=== PATIENT | female | born 2000 | race Caucasian/White ===

== ENCOUNTER 2021-08-20 15:54 | Emergency (ER) | payer OTHER, MEDICAID ==
--- NOTE | 2021-08-20 16:20 | ERPHSYRPT ---
- History of Present Illness Source: patient Exam Limitations: no limitations Patient Subjective Stated Complaint: head pain Triage Nursing Assessment: Patient ambulated back to ED and transferred self to bed. Patient A+O X 3. Patient's skin pink, warm and dry. Patient complains of head pain on the right top side of head for the past 3 days intermittent sharp pain. Patient currently denies pain or discomfort. Patient denies dizziniess, N/V. Physician History: 21 yo wf w 3 day h/o R parietal, instantaneous sharp pain. Pt is currently pain free/0 but has been up to a 7. She has a h/o migraine STALEY's but symptoms different. She denies N/V/blurry vision/focal weakness/fever/trauma/cough/coryza. Nothing makes the pain better or worse. Timing/Duration: other (3 days) Quality: sharpness Head Pain Location: parietal (R parietal) Severity of Pain-Max: moderate Severity of Pain-Current: none Recent Head Trauma: no recent headache/trauma Modifying Factors: Worsens With: cold therapy, exposure to light, immobilization, medication, movement, rest, noise, position Associated Symptoms: No confusion, No dizziness, No fatigue, No facial pain, No fever/chills, No flushing, No light-headedness, No loss of consciousness, No nausea/vomiting, No nasal congestion, No nasal drainage, No neck pain, No numbness in legs/feet, No rash, No sweating, No scotoma, No seizures, No sinus infection, No sensitive to light, No speech problems, No stiff neck, No trouble walking, No vision changes, No visual disturbance, No weakness Previous symptoms: no prior history Allergies/Adverse Reactions: No Known Drug Allergies Allergy (Verified 08/20/21 15:58) Home Medications: Sumatriptan Succinate [Imitrex] 1 tab PO TID 08/20/21 [History] Hx Tetanus, Diphtheria Vaccination/Date Given: Yes Hx Influenza Vaccination/Date Given: Yes (2019) Hx Pneumococcal Vaccination/Date Given: No Immunizations Up to Date: Yes Travel Risk - International Travel Have you traveled outside of the country in past 3 weeks: No - Coronavirus Screening Are you exhibiting any of the following symptoms?: No Close contact with a COVID-19 positive Pt in past 14-21 Days: No - Vaccine Status Have you recieved a Covid-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: Yes 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: [employer] - Vaccination Dates Date of 2cond Vaccination (if applicable): 08/07/2021 - Review of Systems Constitutional: No Symptoms Eyes: No Symptoms Ears, Nose, & Throat: No Symptoms Respiratory: No Symptoms Cardiac: No Symptoms Abdominal/Gastrointestinal: No Symptoms Genitourinary Symptoms: No Symptoms Musculoskeletal: No Symptoms Skin: No Symptoms Neurological: No Symptoms, Headache Psychological: No Symptoms Endocrine: No Symptoms Hematologic/Lymphatic: No Symptoms Immunological/Allergic: No Symptoms - Past Medical History Pertinent Past Medical History: Yes Neurological History: Migraines ENT History: No Pertinent History Cardiac History: No Pertinent History Respiratory History: No Pertinent History Endocrine Medical History: No Pertinent History Musculoskeletal History: No Pertinent History GI Medical History: No Pertinent History History: No Pertinent History Psycho-Social History: Anxiety Female Reproductive Disorders: No Pertinent History - Past Surgical History Past Surgical History: No Neuro Surgical History: No Pertinent History Cardiac: No Pertinent History Respiratory: No Pertinent History Gastrointestinal: No Pertinent History Genitourinary: No Pertinent History Musculoskeletal: No Pertinent History Female Surgical History: No Pertinent History - Social History Smoking Status: Never smoker Exposure to second hand smoke: No Drug Use: none Patient Lives Alone: No Significant Family History: no pertinent family hx - Female History Hx Last Menstrual Period: Depo shot Hx Now: No - Nursing Vital Signs Nursing Vital Signs: Initial Vital Signs Temperature 98.9 F 08/20/21 16:00 Pulse Rate 92 H 08/20/21 16:00 Respiratory Rate 18 08/20/21 16:00 Blood Pressure 141/77 08/20/21 16:00 O2 Sat by Pulse Oximetry 100 08/20/21 16:00 Pain Scale Pain Intensity 0 Hypertensive - Physical Exam General Appearance: no apparent distress Eye Exam: PERRL/EOMI, eyes nml inspection Ears, Nose, Throat Exam: normal ENT inspection, TMs normal, pharynx normal, moist mucous membranes Neck Exam: normal inspection, non-tender, supple, full range of motion, No meningismus, No mass, No Brudzinski, No Kernig's Respiratory Exam: normal breath sounds, lungs clear, airway intact Cardiovascular Exam: regular rate/rhythm, normal heart sounds, murmur Gastrointestinal/Abdominal Exam: soft, normal bowel sounds, No tenderness Back Exam: normal inspection, normal range of motion, No CVA tenderness, No vertebral tenderness Extremity Exam: normal inspection, normal range of motion Mental Status Exam: alert, oriented x 3, 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: normal hearing, normal speech, PERRL, No abnormal eye position, No abnormal gag reflex, No abnormal pupil position, No facial asymmetry, No facial droop, No facial paresthesias, No facial weakness, No gaze palsy, No hearing deficit (R), No hearing deficit (L), No tongue deviation to R, No tongue deviation to L Coordination/Gait Exam: normal finger to nose, normal gait, normal cerebellar function, negative Romberg's sign, positive Romberg's sign Motor/Sensory Exam: no motor deficit, no sensory deficit, no pronator drift, negative Babinski's sign DTR Exam: bicep (R): 2+, bicep (L): 2+ Skin Exam: normal color, warm, dry, No rash Lymphatic Exam: adenopathy SpO2 Interpretation: normal SpO2: 100 O2 Delivery: Room Air - Course Nursing assessment & vital signs reviewed: Yes - Progress Progress: improved Progress Note: 08/20/21 16:21 Pt wo pain/focal weakness/Normal PE/No fever so will DC at this time as pain is most likely cutaneous nerve pain 08/20/21 16:47 Pt instructed to return to ER for CT of head for focal weakness/increasing pain/Temperature greater than 100.5 Counseled pt/family regarding: diagnosis, need for follow-up - Departure Departure Disposition: Home Clinical Impression: Paroxysmal nerve pain Condition: Stable Critical Care Time: No Referrals: LINDA OVIEDO MD [Primary Care Provider] - Instructions: Neuropathic Pain, Headache, Adult (DC) Additional Instructions: Return to ER for sustained, increasing pain/Focal weakness/Temperature greater than 100.5
[2021-08-20 16:23] VITALS: BP 112/77; PULSE 84; O2SAT 100
== END 2021-08-20 16:28 | disposition home or self-care (01) ==
LOC: ED 15:54
DX: M79.2 Neuralgia and neuritis, unspecified (principal)
CPT/HCPCS: 99283

== ENCOUNTER 2022-11-04 20:40 | Emergency (ER) | payer OTHER, MEDICAID ==
[2022-11-04 21:27] LABS: Absolute Neutrophil Ct (ANC) 3.29 x10^3/uL (1.4-6.9); Basophil (Absolute #) 0.03 x10^3/uL (0-0.4); Eosinophil % 1.4 % (0.00-5.0); Eosinophil (Absolute #) 0.08 x10^3/uL (0-0.5); Hematocrit 41.5 % (35-47); Hemoglobin 13.9 g/dL (12.0-16.0); Lymphocyte (Absolute #) 1.96 x10^3/uL (1.0-4.6); Lymphocytes % 33.7 % (24.0-44.0); Mean Cell Volume 88.7 fL (78-100); Mean Corpuscular Hemoglobin 29.7 pg (26-32); Mean Corpuscular Hgb Concent. 33.5 g/dL (32-36); Monocyte (Absolute #) 0.43 x10^3/uL (0.0-1.3); Monocytes % 7.4 % (0.0-12.0); Neutrophil % 56.7 % (36.0-66.0); Platelet Count 300 x10^3/uL (150-450); Red Blood Count 4.68 x10^6/uL (4.1-5.4); Red Cell Distribution Width 11.4 % (11.5-14.0); White Blood Count 5.8 x10^3/uL (4.0-10.5)
[2022-11-04 21:29] LABS: Appearance CLEAR (CLEAR); Bilirubin NEGATIVE (NEGATIVE); Dipstick done @ ? MAIN LAB; Epithelial Cells RARE /HPF (FEW); Glucose NEGATIVE (NEGATIVE); Ketones NEGATIVE (NEGATIVE); Mucus SLIGHT /HPF (NEGATIVE); Nitrite NEGATIVE (NEGATIVE); Protein,Urine Dip NEGATIVE (Negative); RBC NEGATIVE Ery/ul (0-5); Specific Gravity >=1.030 (1.005-1.025); Urobilinogen 0.2 mg/dL (0-1); WBC 0-2 /HPF (0-5)
[2022-11-04 21:31] LABS: RBC NONE SEEN /HPF (0-2); Urine Cultured Indicated? NO
[2022-11-04 21:33] LABS: ALBUMIN 4.4 g/dL (3.5-5.0); ALKALINE PHOSPHATASE 63 U/L (38-126); ANION GAP 10.4 MEQ/L (5-15); BLOOD UREA NITROGEN 13 mg/dL (7-17); CHLORIDE 102 mmol/L (98-107); Calcium 8.9 mg/dL (8.4-10.2); Carbon Dioxide 27 mmol/L (22-30); Creatinine 1 0.76 mg/dL (0.52-1.04); EST GLOMERULAR FILTRATION RATE > 60.0 ML/MIN; Glucose 103 mg/dL (74-106); Potassium 3.4 mmol/L (3.5-5.1); SGOT/AST 29 U/L (14-36); SGPT/ALT 15 U/L (0-35); SODIUM 137 mmol/L (137-145); Total Protein 7.8 g/dL (6.3-8.2)
[2022-11-04 21:53] LABS: Group A Strep NOT DETECTED (NEGATIVE)
--- NOTE | 2022-11-04 21:53 | ERPHSYRPT ---
- History of Present Illness Time Seen by Provider: 11/04/22 21:52 Source: patient Exam Limitations: no limitations Patient Subjective Stated Complaint: PT states "I have been shakey and not feeling well. I am weak and it feels like it is getting worse." Triage Nursing Assessment: Pt presnted alert and oriented X 3, skin pwd. Pt ambulates with an upright steady gait, able to speak in clear full sentenecs pt in no apparent respiratory distress. Physician History: Patient 22-year-old female with a history of gestational diabetes presents to our ED for evaluation of feeling shaky and not well. Patient concerned that her blood sugar may be low. No nausea or vomiting. No diarrhea. No rash. No chest pain or shortness of breath. Symptoms are mild to moderate in intensity. Patient did not appear to be in any distress at this time. Patient is otherwise healthy. She voices no other complaints or concerns at this time. Portions of this note were created with voice recognition technology. There may be grammatical, spelling, punctuation or sound alike errors Timing/Duration: today Severity: moderate Modifying Factors: Improves With: nothing Associated Symptoms: denies symptoms Allergies/Adverse Reactions: No Known Drug Allergies Allergy (Verified 08/20/21 15:58) Home Medications: Sumatriptan Succinate [Imitrex] 1 tab PO TID 08/20/21 [History] Ethinyl Estradiol/Drospirenone [Loryna 3 mg-0.02 mg Tablet] 1 each PO DAILY 11/04/22 [History] PARoxetine HCL [Paroxetine Cr] 25 mg PO DAILY 11/04/22 [History] Hx Tetanus, Diphtheria Vaccination/Date Given: Yes Hx Influenza Vaccination/Date Given: Yes (2019) Hx Pneumococcal Vaccination/Date Given: No Immunizations Up to Date: Yes Travel Risk - International Travel Have you traveled outside of the country in past 3 weeks: No - Coronavirus Screening Are you exhibiting any of the following symptoms?: No Close contact with a COVID-19 positive Pt in past 14-21 Days: No - Vaccine Status Have you recieved a Covid-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: 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[employer] - Vaccination Dates Date of 2cond Vaccination (if applicable): 08/07/2021 - Review of Systems Constitutional: No Symptoms, No Fever, No Chills Eyes: No Symptoms Ears, Nose, & Throat: No Symptoms Respiratory: No Symptoms, No Cough, No Dyspnea Cardiac: No Symptoms, No Chest Pain, No Edema, No Syncope Abdominal/Gastrointestinal: No Symptoms, No Abdominal Pain, No Nausea, No Vomiting, No Diarrhea Genitourinary Symptoms: No Symptoms, No Dysuria Musculoskeletal: No Symptoms, No Back Pain, No Neck Pain Skin: No Symptoms, No Rash Neurological: No Symptoms, No Dizziness, No Focal Weakness, No Sensory Changes Psychological: No Symptoms Endocrine: No Symptoms Hematologic/Lymphatic: No Symptoms Immunological/Allergic: No Symptoms All Other Systems: Reviewed and Negative - Past Medical History Pertinent Past Medical History: Yes Neurological History: Migraines ENT History: No Pertinent History Cardiac History: No Pertinent History Respiratory History: No Pertinent History Endocrine Medical History: No Pertinent History Musculoskeletal History: No Pertinent History GI Medical History: No Pertinent History History: No Pertinent History Psycho-Social History: Anxiety Female Reproductive Disorders: No Pertinent History - Past Surgical History Past Surgical History: No Neuro Surgical History: No Pertinent History Cardiac: No Pertinent History Respiratory: No Pertinent History Gastrointestinal: No Pertinent History Genitourinary: No Pertinent History Musculoskeletal: No Pertinent History Female Surgical History: No Pertinent History - Social History Smoking Status: Never smoker Exposure to second hand smoke: No Drug Use: none Patient Lives Alone: No Significant Family History: no pertinent family hx - Female History Hx Last Menstrual Period: 10/04/2022 Hx Now: No - Nursing Vital Signs Nursing Vital Signs: Initial Vital Signs Temperature 98.2 F 11/04/22 20:44 Pulse Rate 98 H 11/04/22 20:44 Respiratory Rate 20 11/04/22 20:44 Blood Pressure 119/66 11/04/22 20:44 O2 Sat by Pulse Oximetry 100 11/04/22 20:44 Pain Scale Pain Intensity 0 - Physical Exam General Appearance: no apparent distress, alert Eye Exam: PERRL/EOMI, eyes nml inspection Ears, Nose, Throat Exam: normal ENT inspection, TMs normal, pharynx normal, moist mucous membranes Neck Exam: normal inspection, non-tender, supple, full range of motion Respiratory Exam: normal breath sounds, lungs clear, airway intact, No respiratory distress Cardiovascular Exam: regular rate/rhythm, normal heart sounds, normal peripheral pulses Gastrointestinal/Abdomen Exam: soft, normal bowel sounds, No tenderness, No mass Back Exam: normal inspection, normal range of motion, No CVA tenderness, No vertebral tenderness Extremity Exam: normal inspection, normal range of motion, pelvis stable Neurologic Exam: alert, oriented x 3, cooperative, normal mood/affect, nml cerebellar function, nml station & gait, sensation nml, No motor deficits Skin Exam: normal color, warm, dry, No rash Lymphatic Exam: No adenopathy SpO2 Interpretation: normal SpO2: 100 O2 Delivery: Room Air - Course Nursing assessment & vital signs reviewed: Yes Ordered Tests: Active Orders 24 hr Category Date Time Status IV Insertion STAT Care 11/04/22 21:19 Active POCT Glucose Check STAT Care 11/04/22 20:44 Active CBC W DIFF Stat Lab 11/04/22 21:26 Completed CMP Stat Lab 11/04/22 21:26 Completed HCG,QUALITATIVE URINE Stat Lab 11/04/22 21:26 Completed [place] Screen Stat Lab 11/04/22 21:26 Completed POCT GLUCOSE Stat Lab 11/04/22 20:50 Completed UA W/RFX CULTURE Stat Lab 11/04/22 21:24 Completed Lab/Rad Data: Laboratory Result Diagrams 11/04/22 21:26 11/04/22 21:26 Laboratory Results 11/04/22 11/04/22 11/04/22 Range/Units 21:26 21:26 21:26 WBC 5.8 (4.0-10.5) x10^3/uL RBC 4.68 (4.1-5.4) x10^6/uL Hgb 13.9 (12.0-16.0) g/dL Hct 41.5 (35-47) % MCV 88.7 (78-100) fL MCH 29.7 (26-32) pg MCHC 33.5 (32-36) g/dL RDW 11.4 L (11.5-14.0) % Plt Count 300 (150-450) x10^3/uL MPV 10.0 (7.5-11.0) fL Gran % 56.7 (36.0-66.0) % Immature Gran % (Auto) 0.3 (0.00-0.4) % Nucleat RBC Rel Count 0.0 (0.00-0.1) % Eos # (Auto) 0.08 (0-0.5) x10^3/uL Immature Gran # (Auto) 0.02 (0.00-0.03) x10^3u/L Absolute Lymphs (auto) 1.96 (1.0-4.6) x10^3/uL Absolute Monos (auto) 0.43 (0.0-1.3) x10^3/uL Absolute Nucleated RBC 0.00 (0.00-0.01) x10^3u/L Lymphocytes % 33.7 (24.0-44.0) % Monocytes % 7.4 (0.0-12.0) % Eosinophils % 1.4 (0.00-5.0) % Basophils % 0.5 (0.0-0.4) % Absolute Granulocytes 3.29 (1.4-6.9) x10^3/uL Basophils # 0.03 (0-0.4) x10^3/uL Sodium 137 (137-145) mmol/L Potassium 3.4 L (3.5-5.1) mmol/L Chloride 102 (98-107) mmol/L Carbon Dioxide 27 (22-30) mmol/L Anion Gap 10.4 (5-15) MEQ/L BUN 13 (7-17) mg/dL Creatinine 0.76 (0.52-1.04) mg/dL Estimated GFR > 60.0 ML/MIN Glucose 103 (74-106) mg/dL POC Glucometer (74 to 106) mg/dL Calcium 8.9 (8.4-10.2) mg/dL Total Bilirubin 0.40 (0.2-1.3) mg/dL AST 29 (14-36) U/L ALT 15 (0-35) U/L Alkaline Phosphatase 63 (38-126) U/L Serum Total Protein 7.8 (6.3-8.2) g/dL Albumin 4.4 (3.5-5.0) g/dL Urinalys Dipstick Clnc Urine Color (YELLOW) Urine Appearance (CLEAR) Urine pH (5-6) Ur Specific [place] (1.005-1.025) POC Urine Protein Conf (Negative) Urine Ketones (NEGATIVE) Urine Nitrite (NEGATIVE) Urine Bilirubin (NEGATIVE) Urine Urobilinogen (0-1) mg/dL Urine Leukocytes (NEGATIVE) Urine WBC (Auto) (0-5) /HPF Urine RBC (Auto) (0-2) /HPF U Epithel Cells (Auto) (FEW) /HPF Urine Bacteria (Auto) (NEGATIVE) /HPF Urine RBC (0-5) Eric/ul Urine Mucus (Auto) (NEGATIVE) /HPF Ur Culture Indicated? Urine Glucose (NEGATIVE) mg/dL Urine HCG, Qual NEGATIVE (Negative) Monoscreen (Negative) Influenza Type A Ag (NEGATIVE) Influenza Type B Ag (NEGATIVE) RSV (PCR) (Negative) SARS-CoV-2 (PCR) (NEGATIVE) Group A Strep Antibody (NEGATIVE) 11/04/22 11/04/22 11/04/22 Range/Units 21:26 21:26 21:24 WBC (4.0-10.5) x10^3/uL RBC (4.1-5.4) x10^6/uL Hgb (12.0-16.0) g/dL Hct (35-47) % MCV (78-100) fL MCH (26-32) pg MCHC (32-36) g/dL RDW (11.5-14.0) % Plt Count (150-450) x10^3/uL MPV (7.5-11.0) fL Gran % (36.0-66.0) % Immature Gran % (Auto) (0.00-0.4) % Nucleat RBC Rel Count (0.00-0.1) % Eos # (Auto) (0-0.5) x10^3/uL Immature Gran # (Auto) (0.00-0.03) x10^3u/L Absolute Lymphs (auto) (1.0-4.6) x10^3/uL Absolute Monos (auto) (0.0-1.3) x10^3/uL Absolute Nucleated RBC (0.00-0.01) x10^3u/L Lymphocytes % (24.0-44.0) % Monocytes % (0.0-12.0) % Eosinophils % (0.00-5.0) % Basophils % (0.0-0.4) % Absolute Granulocytes (1.4-6.9) x10^3/uL Basophils # (0-0.4) x10^3/uL Sodium (137-145) mmol/L Potassium (3.5-5.1) mmol/L Chloride (98-107) mmol/L Carbon Dioxide (22-30) mmol/L Anion Gap (5-15) MEQ/L BUN (7-17) mg/dL Creatinine (0.52-1.04) mg/dL Estimated GFR ML/MIN Glucose (74-106) mg/dL POC Glucometer (74 to 106) mg/dL Calcium (8.4-10.2) mg/dL Total Bilirubin (0.2-1.3) mg/dL AST (14-36) U/L ALT (0-35) U/L Alkaline Phosphatase (38-126) U/L Serum Total Protein (6.3-8.2) g/dL Albumin (3.5-5.0) g/dL Urinalys Dipstick Clnc MAIN LAB Urine Color YELLOW (YELLOW) Urine Appearance CLEAR (CLEAR) Urine pH 6.0 (5-6) Ur Specific [place] >=1.030 A (1.005-1.025) POC Urine Protein Conf NEGATIVE (Negative) Urine Ketones NEGATIVE (NEGATIVE) Urine Nitrite NEGATIVE (NEGATIVE) Urine Bilirubin NEGATIVE (NEGATIVE) Urine Urobilinogen 0.2 (0-1) mg/dL Urine Leukocytes NEGATIVE (NEGATIVE) Urine WBC (Auto) 0-2 (0-5) /HPF Urine RBC (Auto) NONE SEEN (0-2) /HPF U Epithel Cells (Auto) RARE (FEW) /HPF Urine Bacteria (Auto) NONE (NEGATIVE) /HPF Urine RBC NEGATIVE (0-5) Eric/ul Urine Mucus (Auto) SLIGHT A (NEGATIVE) /HPF Ur Culture Indicated? NO Urine Glucose NEGATIVE (NEGATIVE) mg/dL Urine HCG, Qual (Negative) Monoscreen NEGATIVE (Negative) Influenza Type A Ag NEGATIVE (NEGATIVE) Influenza Type B Ag NEGATIVE (NEGATIVE) RSV (PCR) NEGATIVE (Negative) SARS-CoV-2 (PCR) POSITIVE A (NEGATIVE) Group A Strep Antibody NOT DETECTED (NEGATIVE) 11/04/22 Range/Units 20:50 WBC (4.0-10.5) x10^3/uL RBC (4.1-5.4) x10^6/uL Hgb (12.0-16.0) g/dL Hct (35-47) % MCV (78-100) fL MCH (26-32) pg MCHC (32-36) g/dL RDW (11.5-14.0) % Plt Count (150-450) x10^3/uL MPV (7.5-11.0) fL Gran % (36.0-66.0) % Immature Gran % (Auto) (0.00-0.4) % Nucleat RBC Rel Count (0.00-0.1) % Eos # (Auto) (0-0.5) x10^3/uL Immature Gran # (Auto) (0.00-0.03) x10^3u/L Absolute Lymphs (auto) (1.0-4.6) x10^3/uL Absolute Monos (auto) (0.0-1.3) x10^3/uL Absolute Nucleated RBC (0.00-0.01) x10^3u/L Lymphocytes % (24.0-44.0) % Monocytes % (0.0-12.0) % Eosinophils % (0.00-5.0) % Basophils % (0.0-0.4) % Absolute Granulocytes (1.4-6.9) x10^3/uL Basophils # (0-0.4) x10^3/uL Sodium (137-145) mmol/L Potassium (3.5-5.1) mmol/L Chloride (98-107) mmol/L Carbon Dioxide (22-30) mmol/L Anion Gap (5-15) MEQ/L BUN (7-17) mg/dL Creatinine (0.52-1.04) mg/dL Estimated GFR ML/MIN Glucose (74-106) mg/dL POC Glucometer 92 (74 to 106) mg/dL Calcium (8.4-10.2) mg/dL Total Bilirubin (0.2-1.3) mg/dL AST (14-36) U/L ALT (0-35) U/L Alkaline Phosphatase (38-126) U/L Serum Total Protein (6.3-8.2) g/dL Albumin (3.5-5.0) g/dL Urinalys Dipstick Clnc Urine Color (YELLOW) Urine Appearance (CLEAR) Urine pH (5-6) Ur Specific [place] (1.005-1.025) POC Urine Protein Conf (Negative) Urine Ketones (NEGATIVE) Urine Nitrite (NEGATIVE) Urine Bilirubin (NEGATIVE) Urine Urobilinogen (0-1) mg/dL Urine Leukocytes (NEGATIVE) Urine WBC (Auto) (0-5) /HPF Urine RBC (Auto) (0-2) /HPF U Epithel Cells (Auto) (FEW) /HPF Urine Bacteria (Auto) (NEGATIVE) /HPF Urine RBC (0-5) Eric/ul Urine Mucus (Auto) (NEGATIVE) /HPF Ur Culture Indicated? Urine Glucose (NEGATIVE) mg/dL Urine HCG, Qual (Negative) Monoscreen (Negative) Influenza Type A Ag (NEGATIVE) Influenza Type B Ag (NEGATIVE) RSV (PCR) (Negative) SARS-CoV-2 (PCR) (NEGATIVE) Group A Strep Antibody (NEGATIVE) - Progress Progress: improved Progress Note: Patient reassessed. She feels well. COVID test positive. Patient resting comfortably. Laboratory work-up essentially unremarkable. Potassium 3.4. Patient declines oral potassium. UA negative for UTI. [place] negative she is in no acute distress. Vital stable. Will discharge home. Patient understands importance of quarantine. Patient agrees to abide by the quarantine guidelines for COVID-19. Patient agrees to follow-up with her primary care doctor within 48 hours for evaluation. Portions of this note were created with voice recognition technology. There may be grammatical, spelling, punctuation or sound alike errors 11/04/22 22:37 Counseled pt/family regarding: lab results, diagnosis, need for follow-up - Departure Departure Disposition: Home Clinical Impression: COVID-19 Condition: Stable Critical Care Time: No Referrals: LINDA OVIEDO MD [Primary Care Provider] - Follow up/PCP as directed Instructions: COVID-19 (DC) Additional Instructions: Discharge/Care Plan MONSTER GARSIA was seen on 11/04/22 in the Emergency Room. The patient was coun seled regarding Diagnosis,Lab results, Imaging studies, need for follow up and when to return to the Emergency Room. Prescriptions given: Discharge Note I have spoken with the patient and/or caregivers. I have explained the patient's condition, diagnosis and treatment plan based on the information available to me at this time. I have answered the patient's and/or caregiver's questions and addressed any concerns. The patient and/or caregivers have as good understanding of the patient's diagnosis, condition and treatment plan as can be expected at this point. The vital signs have been stable. The patient's condition is stable and appropriate for discharge from the emergency department. The patient will pursue further outpatient evaluation with the primary care physician or other designated or consulting physician as outlined in the discharge instructions. The patient and/or caregivers are agreeable to this plan of care and follow-up instructions have been explained in detail. The patient and/or caregivers have received these instruction. The patient/and or caregivers are aware that any significant change in condition or worsening of symptoms should prompt an immediate return to this or the closest emergency department or call 911.
[2022-11-04 22:04] LABS: INFLUENZA A NEGATIVE (NEGATIVE); INFLUENZA B NEGATIVE (NEGATIVE); RESPIRATORY SYNCTIAL VIRUS NEGATIVE (Negative)
[2022-11-04 22:22] LABS: SARS-CoV-2 Xpert Express POSITIVE (NEGATIVE)
[2022-11-04 22:27] VITALS: BP 108/88; PULSE 84
[2022-11-04 22:34] VITALS: O2SAT 100
== END 2022-11-04 22:40 | disposition home or self-care (01) ==
LOC: ED 20:40
DX: U07.1 COVID-19 (principal); Z79.899 Other long term (current) drug therapy
CPT/HCPCS: 0241U; 36000; 36415; 80053; 81015; 81025; 82947; 85025; 86308; 87651; 99283

== ENCOUNTER 2024-12-19 17:07 | Emergency (ER) | payer BC, MEDICAID ==
--- NOTE | 2024-12-19 18:29 | ERPHSYRPT ---
- History of Present Illness Source: patient, family Exam Limitations: no limitations Timing/Duration: today Cough Quality/Degree: mild Possible Cause: no prior episodes Modifying Factors: Improves With: nothing Associated Symptoms: cough, dizziness, muscle aches, shortness of breath, sore throat, No chest pain/soreness Hx Tetanus, Diphtheria Vaccination/Date Given: Yes Hx Influenza Vaccination/Date Given: Yes (2019) Hx Pneumococcal Vaccination/Date Given: No <ERI DAVENPORT - Last Filed: 12/19/24 18:37> <MAGALI LEDESMA - Last Filed: 12/20/24 01:52> - History of Present Illness Time Seen by Provider: 12/19/24 18:29 Physician History: This is a 24-year-old white female patient who arrives by private vehicle acc ompanied by her significant other with the complaint of fever, body aches, headache, vomiting. Per her significant other patient has been breathing rapidly. Patient complains of cramping in her hands and feet. She does not have chest pain. She is mildly short of breath. She has not had any diarrhea symptoms. (ERI DAVENPORT) Allergies/Adverse Reactions: No Known Drug Allergies Allergy (Verified 12/19/24 18:36) Home Medications: Sumatriptan Succinate [Imitrex] 1 tab PO TID 08/20/21 [History] Ethinyl Estradiol/Drospirenone [Loryna 3 mg-0.02 mg Tablet] 1 each PO DAILY 11/04/22 [History] PARoxetine HCL [Paroxetine Cr] 25 mg PO DAILY 11/04/22 [History] Travel Risk - International Travel Have you traveled outside of the country in past 3 weeks: No - Emerging Infectious Disease Are you exhibiting symptoms associated with any current EIDs: No Symptoms: Headaches/Body Aches/, Shortness of Breath, Vomitting <ERI DAVENPORT - Last Filed: 12/19/24 18:37> - Review of Systems Constitutional: Fever Eyes: No Symptoms Ears, Nose, & Throat: Throat Pain Respiratory: Cough Cardiac: No Symptoms Abdominal/Gastrointestinal: Nausea, Vomiting, Appetite Changes Genitourinary Symptoms: No Symptoms Musculoskeletal: Arthralgias, Myalgias Skin: No Symptoms Neurological: No Symptoms Psychological: No Symptoms Endocrine: No Symptoms Hematologic/Lymphatic: No Symptoms Immunological/Allergic: No Symptoms All Other Systems: Reviewed and Negative <ERI DAVENPORT MelissaElaine - Last Filed: 12/19/24 18:37> - Past Medical History Pertinent Past Medical History: Yes Neurological History: Migraines ENT History: No Pertinent History Cardiac History: No Pertinent History Respiratory History: No Pertinent History Endocrine Medical History: No Pertinent History Musculoskeletal History: No Pertinent History GI Medical History: No Pertinent History History: No Pertinent History Psycho-Social History: Anxiety Female Reproductive Disorders: No Pertinent History - Past Surgical History Past Surgical History: No Neuro Surgical History: No Pertinent History Cardiac: No Pertinent History Respiratory: No Pertinent History Gastrointestinal: No Pertinent History Genitourinary: No Pertinent History Musculoskeletal: No Pertinent History Female Surgical History: No Pertinent History Significant Family History: no pertinent family hx - Social History Smoking Status: Never smoker Exposure to second hand smoke: No Drug Use: none Patient Lives Alone: No <ERI DAVENPORT MelissaElaine - Last Filed: 12/19/24 18:37> - Physical Exam General Appearance: mild distress, alert, anxiety, thin Eye Exam: PERRL/EOMI, eyes nml inspection Ears, Nose, Throat Exam: normal ENT inspection, moist mucous membranes Neck Exam: normal inspection, non-tender, supple, full range of motion Respiratory Exam: normal breath sounds, lungs clear, airway intact, No chest tenderness, No respiratory distress Cardiovascular Exam: regular rate/rhythm, normal heart sounds, normal peripheral pulses Gastrointestinal/Abdomen Exam: soft, normal bowel sounds, No tenderness Pelvic Exam: not done Rectal Exam: not done Back Exam: normal inspection, normal range of motion, No CVA tenderness, No vertebral tenderness Extremity Exam: normal inspection, normal range of motion, pelvis stable Neurologic Exam: alert, oriented x 3, cooperative, 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 nml as tested, nml cerebellar function, nml station & gait, sensation nml Skin Exam: normal color, warm, dry Lymphatic Exam: No adenopathy SpO2 Interpretation: normal O2 Delivery: Room Air <ERI DAVENPORT - Last Filed: 12/19/24 18:37> - Nursing Vital Signs Nursing Vital Signs: Initial Vital Signs Temperature 101.0 F 12/19/24 18:41 Pulse Rate 113 H 12/19/24 18:41 Respiratory Rate 22 12/19/24 18:41 Blood Pressure 109/70 12/19/24 18:41 O2 Sat by Pulse Oximetry 100 12/19/24 18:41 Pain Scale Pain Intensity 0 - Course Nursing assessment & vital signs reviewed: Yes <EIR DAVENPORT - Last Filed: 12/19/24 18:37> Ordered Tests: Active Orders 24 hr Category Date Time Status IV Insertion STAT Care 12/19/24 18:42 Active Pulse Oximetry (ED) STAT Care 12/19/24 18:42 Active Telemetry q4h Care 12/19/24 22:12 Active ABDOMEN AND PELVIS W/0 CONTRAS [CT] Stat Exams 12/19/24 23:03 Completed CHEST 1 VIEW (PORTABLE) Stat Exams 12/19/24 18:42 Taken BLOOD CULTURE Stat Lab 12/19/24 21:24 Received BMP Stat Lab 12/19/24 21:24 Completed CBC W DIFF Stat Lab 12/19/24 19:00 Completed CMP Stat Lab 12/19/24 19:00 Completed CULTURE,URINE Stat Lab 12/19/24 18:44 Received HCG QUALITATIVE, SERUM Stat Lab 12/19/24 19:00 Completed Lactic Acid Stat Lab 12/19/24 18:45 Completed Lactic Acid Stat Lab 12/19/24 20:52 Completed MONO SCREEN Stat Lab 12/19/24 19:00 Completed UA W/RFX UR CULTURE Stat Lab 12/19/24 18:44 Completed Medication Summary Generic Name Dose Route Start Last Admin Trade Name Freq PRN Reason Stop Dose Admin Potassium Chloride/Sodium Chloride 1,000 mls @ 100 mls/hr 12/19/24 21:45 12/19/24 21:47 Sodium Chloride 0.9% W/ 20 Meq Kcl/Liter IV 01/18/25 21:44 100 mls/hr .Q10H AVANI Administration Discontinued Medications Generic Name Dose Route Start Last Admin Trade Name Freq PRN Reason Stop Dose Admin Acetaminophen 1,000 mg 12/19/24 19:33 12/19/24 19:35 Acetaminophen 500 Mg Tablet PO 12/19/24 19:34 1,000 mg STAT STA Administration Acetaminophen Confirm 12/19/24 19:34 Acetaminophen 500 Mg Tablet Administered 12/19/24 19:35 Dose 1,000 mg .ROUTE .STK-MED ONE Sodium Chloride 1,000 mls @ 999 mls/hr 12/19/24 18:42 12/19/24 20:42 Sodium Chloride 0.9% 1000 Ml IV 12/19/24 19:42 Infused .Q1H1M STA Infusion Sodium Chloride Confirm 12/19/24 18:51 Sodium Chloride 0.9% 1000 Ml Administered 12/19/24 18:52 Dose 1,000 mls @ ud .ROUTE .STK-MED ONE Ceftriaxone Sodium 1 gm in 100 mls @ 200 mls/hr 12/19/24 20:02 12/19/24 20:41 Rocephin 1 Gm / 100 Ml Nacl IV 12/19/24 20:31 Infused STAT ONE Infusion Ceftriaxone Sodium Confirm 12/19/24 20:12 Rocephin 1 Gm / 100 Ml Nacl Administered 12/19/24 20:13 Dose 1 gm in 100 mls @ ud IV .STK-MED ONE Potassium Chloride 20 meq in 100 mls @ 50 mls/hr 12/19/24 22:12 12/19/24 22:19 Potassium Chloride 20 Meq In Water 100ml IV 12/20/24 00:11 50 mls/hr STAT ONE Administration Potassium Chloride Confirm 12/19/24 22:18 Potassium Chloride 20 Meq In Water 100ml Administered 12/19/24 22:19 Dose 100 mls @ ud IV .STK-MED ONE Ibuprofen 600 mg 12/19/24 21:42 12/19/24 21:46 Ibuprofen 600 Mg Tablet PO 12/19/24 21:43 600 mg STAT ONE Administration Ibuprofen Confirm 12/19/24 21:45 Ibuprofen 600 Mg Tablet Administered 12/19/24 21:46 Dose 600 mg .ROUTE .STK-MED ONE Ondansetron HCl 4 mg 12/19/24 18:42 12/19/24 18:53 Ondansetron Hcl 4 Mg/2 Ml Vial IV 12/19/24 18:43 4 mg STAT STA Administration Ondansetron HCl Confirm 12/19/24 18:51 Ondansetron Hcl 4 Mg/2 Ml Vial Administered 12/19/24 18:52 Dose 4 mg .ROUTE .STK-MED ONE Lab/Rad Data: Laboratory Result Diagrams 12/19/24 19:00 12/19/24 21:24 Laboratory Results 12/19/24 12/19/24 12/19/24 Range/Units 21:24 20:52 19:30 WBC (3.98-10.04) x10^3/uL RBC (3.93-5.22) x10^6/uL Hgb (11.2-15.7) g/dL Hct (34.1-44.9) % MCV (79.4-94.8) fL MCH (25.6-32.2) pg MCHC (32.2-35.5) g/dL RDW (11.7-14.4) % Plt Count (182-369) x10^3/uL MPV (9.4-12.3) fL Gran % (34.0-71.1) % Immature Gran % (Auto) (0.001-0.429) % Nucleat RBC Rel Count (0.00-0.2) % Eos # (Auto) (0.04-0.36) x10^3/uL Immature Gran # (Auto) (0.001-0.031) x10^3u/L Absolute Lymphs (auto) (1.18-3.74) x10^3/uL Absolute Monos (auto) (0.24-0.86) x10^3/uL Absolute Nucleated RBC (0.00-0.012) x10^3u/L Lymphocytes % (19.3-51.7) % Monocytes % (4.7-12.5) % Eosinophils % (0.7-5.8) % Basophils % (0.1-1.2) % Absolute Granulocytes (1.56-6.13) x10^3/uL Basophils # (0.01-0.08) x10^3/uL Sodium 135 (135-145) mmol/L Potassium 3.1 L (3.5-5.1) mmol/L Chloride 100 (98-107) mmol/L Carbon Dioxide 20 L (22-30) mmol/L Anion Gap 18.0 H (5-15) MEQ/L BUN 10 (7-17) mg/dL Creatinine 0.67 (0.52-1.04) mg/dL Estimated GFR 125.9 ML/MIN Glucose 109 H (74-106) mg/dL Lactic Acid 1.0 (0.4-2.0) Calcium 8.7 (8.4-10.2) mg/dL Total Bilirubin (0.2-1.3) mg/dL AST (14-36) U/L ALT (0-35) U/L Alkaline Phosphatase (38-126) U/L Serum Total Protein (6.3-8.2) g/dL Albumin (3.5-5.0) g/dL Serum HCG, Qual (NEGATIVE) Urine Color (Yellow) Urine Appearance (Clear) Urine pH (4.6-8.0) Ur Specific [place] (1.005-1.030) Urine Protein (Negative) Urine Glucose (UA) (Negative) mg/dL Urine Ketones (Negative) Urine Blood (Negative) Urine Nitrite (Negative) Urine Bilirubin (Negative) Urine Urobilinogen (0.2) mg/dL Ur Leukocyte Esterase (Negative) U Hyaline Cast (Auto) (0-2) /LPF Urine Microscopic RBC (0-5) /HPF Urine Microscopic WBC (0-5) /HPF Ur Epithelial Cells (None Seen) /HPF Urine Bacteria (None Seen) /HPF Urine Culture Reflexed (NO) Monoscreen (NEGATIVE) Influenza Type A Ag POSITIVE A (NEGATIVE) Influenza Type B Ag NEGATIVE (NEGATIVE) RSV (PCR) NEGATIVE (NEGATIVE) SARS-CoV-2 (PCR) NEGATIVE (NEGATIVE) Group A Strep Antibody (NEGATIVE) 12/19/24 12/19/24 12/19/24 Range/Units 19:30 19:00 19:00 WBC (3.98-10.04) x10^3/uL RBC (3.93-5.22) x10^6/uL Hgb (11.2-15.7) g/dL Hct (34.1-44.9) % MCV (79.4-94.8) fL MCH (25.6-32.2) pg MCHC (32.2-35.5) g/dL RDW (11.7-14.4) % Plt Count (182-369) x10^3/uL MPV (9.4-12.3) fL Gran % (34.0-71.1) % Immature Gran % (Auto) (0.001-0.429) % Nucleat RBC Rel Count (0.00-0.2) % Eos # (Auto) (0.04-0.36) x10^3/uL Immature Gran # (Auto) (0.001-0.031) x10^3u/L Absolute Lymphs (auto) (1.18-3.74) x10^3/uL Absolute Monos (auto) (0.24-0.86) x10^3/uL Absolute Nucleated RBC (0.00-0.012) x10^3u/L Lymphocytes % (19.3-51.7) % Monocytes % (4.7-12.5) % Eosinophils % (0.7-5.8) % Basophils % (0.1-1.2) % Absolute Granulocytes (1.56-6.13) x10^3/uL Basophils # (0.01-0.08) x10^3/uL Sodium 134 L (135-145) mmol/L Potassium 3.0 L* (3.5-5.1) mmol/L Chloride 102 (98-107) mmol/L Carbon Dioxide 17 L (22-30) mmol/L Anion Gap 17.5 H (5-15) MEQ/L BUN 10 (7-17) mg/dL Creatinine 0.63 (0.52-1.04) mg/dL Estimated GFR 127.8 ML/MIN Glucose 101 (74-106) mg/dL Lactic Acid (0.4-2.0) Calcium 9.2 (8.4-10.2) mg/dL Total Bilirubin 1.00 (0.2-1.3) mg/dL AST 973 H (14-36) U/L ALT 602 H (0-35) U/L Alkaline Phosphatase 75 (38-126) U/L Serum Total Protein 7.7 (6.3-8.2) g/dL Albumin 4.8 (3.5-5.0) g/dL Serum HCG, Qual NEGATIVE (NEGATIVE) Urine Color (Yellow) Urine Appearance (Clear) Urine pH (4.6-8.0) Ur Specific [place] (1.005-1.030) Urine Protein (Negative) Urine Glucose (UA) (Negative) mg/dL Urine Ketones (Negative) Urine Blood (Negative) Urine Nitrite (Negative) Urine Bilirubin (Negative) Urine Urobilinogen (0.2) mg/dL Ur Leukocyte Esterase (Negative) U Hyaline Cast (Auto) (0-2) /LPF Urine Microscopic RBC (0-5) /HPF Urine Microscopic WBC (0-5) /HPF Ur Epithelial Cells (None Seen) /HPF Urine Bacteria (None Seen) /HPF Urine Culture Reflexed (NO) Monoscreen NEGATIVE (NEGATIVE) Influenza Type A Ag (NEGATIVE) Influenza Type B Ag (NEGATIVE) RSV (PCR) (NEGATIVE) SARS-CoV-2 (PCR) (NEGATIVE) Group A Strep Antibody NOT DETECTED (NEGATIVE) 12/19/24 12/19/24 12/19/24 Range/Units 19:00 18:45 18:44 WBC 5.9 (3.98-10.04) x10^3/uL RBC 4.30 (3.93-5.22) x10^6/uL Hgb 12.6 (11.2-15.7) g/dL Hct 36.1 (34.1-44.9) % MCV 84.0 (79.4-94.8) fL MCH 29.3 (25.6-32.2) pg MCHC 34.9 (32.2-35.5) g/dL RDW 12.0 (11.7-14.4) % Plt Count 230 (182-369) x10^3/uL MPV 9.9 (9.4-12.3) fL Gran % 87.2 H (34.0-71.1) % Immature Gran % (Auto) 0.8 H (0.001-0.429) % Nucleat RBC Rel Count 0.0 (0.00-0.2) % Eos # (Auto) 0 L (0.04-0.36) x10^3/uL Immature Gran # (Auto) 0.05 H (0.001-0.031) x10^3u/L Absolute Lymphs (auto) 0.20 L (1.18-3.74) x10^3/uL Absolute Monos (auto) 0.49 (0.24-0.86) x10^3/uL Absolute Nucleated RBC 0.00 (0.00-0.012) x10^3u/L Lymphocytes % 3.4 L (19.3-51.7) % Monocytes % 8.3 (4.7-12.5) % Eosinophils % 0.0 L (0.7-5.8) % Basophils % 0.3 (0.1-1.2) % Absolute Granulocytes 5.14 (1.56-6.13) x10^3/uL Basophils # 0.02 (0.01-0.08) x10^3/uL Sodium (135-145) mmol/L Potassium (3.5-5.1) mmol/L Chloride (98-107) mmol/L Carbon Dioxide (22-30) mmol/L Anion Gap (5-15) MEQ/L BUN (7-17) mg/dL Creatinine (0.52-1.04) mg/dL Estimated GFR ML/MIN Glucose (74-106) mg/dL Lactic Acid 3.0 H (0.4-2.0) Calcium (8.4-10.2) mg/dL Total Bilirubin (0.2-1.3) mg/dL AST (14-36) U/L ALT (0-35) U/L Alkaline Phosphatase (38-126) U/L Serum Total Protein (6.3-8.2) g/dL Albumin (3.5-5.0) g/dL Serum HCG, Qual (NEGATIVE) Urine Color Yellow (Yellow) Urine Appearance Clear (Clear) Urine pH 6.0 (4.6-8.0) Ur Specific [place] 1.020 (1.005-1.030) Urine Protein Trace A (Negative) Urine Glucose (UA) Negative (Negative) mg/dL Urine Ketones 40 A (Negative) Urine Blood Negative (Negative) Urine Nitrite Negative (Negative) Urine Bilirubin Negative (Negative) Urine Urobilinogen 0.2 (0.2) mg/dL Ur Leukocyte Esterase Trace A (Negative) U Hyaline Cast (Auto) 3-5 A (0-2) /LPF Urine Microscopic RBC 0-2 (0-5) /HPF Urine Microscopic WBC 6-10 A (0-5) /HPF Ur Epithelial Cells Few (None Seen) /HPF Urine Bacteria Many A (None Seen) /HPF Urine Culture Reflexed YES (NO) Monoscreen (NEGATIVE) Influenza Type A Ag (NEGATIVE) Influenza Type B Ag (NEGATIVE) RSV (PCR) (NEGATIVE) SARS-CoV-2 (PCR) (NEGATIVE) Group A Strep Antibody (NEGATIVE) <ERI DAVENPORT - Last Filed: 12/19/24 18:37> - Progress Progress: improved Air Movement: good Blood Culture(s) Obtained: No Antibiotics given: Yes Counseled pt/family regarding: lab results, diagnosis, need for follow-up, rad results <MAGALI LEDESMA - Last Filed: 12/20/24 01:52> - Progress Progress Note: 12/19/24 18:39 My medical decision making and the assignment of moderate complexity to this patient's medical issue today is based on review of the patient's past medical history, review the patient's medication list, reviewed patient drug allergy list, history present illness and physical findings on examination. The workup in this patient includes placement of intravenous line, infusion of normal saline solution, infusion of Zofran, CBC, CMP, amylase, lipase, urinalysis, test, viral swabs and group A strep test. We will also order a chest x-ray. Differential diagnosis includes but is not limited to viral illness, strep pharyngitis, dehydration, electrolyte abnormalities, upper respiratory infection I am transferring care of this patient at shift change to Dr. Ledesma. He will follow-up on pending studies and he will make final disposition. (ERI DAVENPORT) 12/19/24 19:34 I assumed care for this pt at 19:[address] Davenport critical potassium reported at 3.0 - pt currently receiving IV fluids, will repeat BMP following fluids and supplement as needed 12/19/24 21:43 pt reports some improvement in sx, has elevated liver enzymes on exam - hep panel ordered still complaining of headache - ordered ibuprofen and subsequent 1L NS w/ 20kcl UA suggestive of UTI - given dose rocephin IV 12/20/24 01:40 CT abd/pel showed - 1. No acute abdominopelvic pathology was identified.Both ovaries appear bulky. If clinically indicated, an ultrasound pelvis is recommended for further eval 12/20/24 01:41 plan for discharge home w/ PCP follow up (Lance) to discuss elevated liver enzymes complete course of antibiotic for UTI recommend plenty of oral hydration w/ clear liquids and electrolyte containing fluids recommend tylenol for discomfort return to ED if - become unable to tolerate oral intake, develop intractable vomiting, develop chest pains, develop significant abdominal pain 12/20/24 01:51 (MAGALI LEDESMA) Medical Desision Making - Independent Historian Additional History obtained from: Relative/friend <ERI DAVENPORT - Last Filed: 12/19/24 18:37> - Diagnostic Testing Diagnostic test were ordered, analyzed, and reviewed by me: Yes Radiological Interpretation: Reviewed by me, Teleradiologist Report - Risk of complications Minimal Risk: Minimal risk of morbidity <COLTONMAGALI WEISS - Last Filed: 12/20/24 01:52> - Departure Departure Disposition: Home Critical Care Time: No <ERI DAVENPORT - Last Filed: 12/19/24 18:37> - Departure Departure Disposition: Home Critical Care Time: No <COLTONMAGALI WEISS - Last Filed: 12/20/24 01:52> - Departure Clinical Impression: Body aches, Transaminitis, Influenza A Fever Qualifiers: Fever type: unspecified Qualified Code(s): R50.9 - Fever, unspecified UTI (urinary tract infection) Qualifiers: Urinary tract infection type: acute cystitis Hematuria presence: without hematuria Qualified Code(s): N30.00 - Acute cystitis without hematuria Condition: Stable Referrals: LINDA OVIEDO MD [Primary Care Provider] - Follow up/PCP as directed Additional Instructions: plan for discharge home w/ PCP follow up (Lance) to discuss elevated liver enzymes complete course of antibiotics for UTI recommend plenty of oral hydration w/ clear liquids and electrolyte containing fluids recommend tylenol for discomfort return to ED if - become unable to tolerate oral intake, develop intractable vomiting, develop chest pains, develop significant abdominal pain Prescriptions: Cefdinir 300 mg PO BID 6 Days #12 cap
[2024-12-19] MEDS ORDERED: Sodium Chloride 0.9% 1000 ML 0 ML ONE (18:51)
[2024-12-19] MEDS ORDERED: Zofran 4 MG/2 ML VIAL ONE (18:51)
[2024-12-19] MEDS: Zofran 4 MG/2 ML VIAL IV STA (18:53)
[2024-12-19] MEDS: Sodium Chloride 0.9% 1000 ML 1,000 ML IV STA (18:54)
[2024-12-19 19:04] LABS: Absolute Neutrophil Ct (ANC) 5.14 x10^3/uL (1.56-6.13); BASOPHIL % 0.3 % (0.1-1.2); Basophil (Absolute #) 0.02 x10^3/uL (0.01-0.08); Eosinophil (Absolute #) 0 x10^3/uL (0.04-0.36); Hematocrit 36.1 % (34.1-44.9); Hemoglobin 12.6 g/dL (11.2-15.7); IMMATURE GRAN # 0.05 x10^3u/L (0.001-0.031); IMMATURE GRAN % 0.8 % (0.001-0.429); Lymphocytes % 3.4 % (19.3-51.7); Mean Corpuscular Hemoglobin 29.3 pg (25.6-32.2); Mean Corpuscular Hgb Concent. 34.9 g/dL (32.2-35.5); Mean Platelet Volume 9.9 fL (9.4-12.3); Monocyte (Absolute #) 0.49 x10^3/uL (0.24-0.86); Monocytes % 8.3 % (4.7-12.5); Neutrophil % 87.2 % (34.0-71.1); Platelet Count 230 x10^3/uL (182-369); White Blood Count 5.9 x10^3/uL (3.98-10.04)
[2024-12-19 19:11] LABS: Appearance Clear (Clear); Bacteria Many /HPF (None Seen); Bilirubin Negative (Negative); Blood Negative (Negative); Epithelial Cells Few /HPF (None Seen); Glucose, Urine Negative (Negative); Ketones 40 (Negative); Leukocyte Esterase Trace (Negative); Nitrite Negative (Negative); Protein,Urine Dip Trace (Negative); RBC 0-2 /HPF (0-5); Urobilinogen 0.2 mg/dL (0.2)
[2024-12-19 19:15] LABS: ALBUMIN 4.8 g/dL (3.5-5.0); ANION GAP 17.5 MEQ/L (5-15); Calcium 9.2 mg/dL (8.4-10.2); Creatinine 1 0.63 mg/dL (0.52-1.04); EST GLOMERULAR FILTRATION RATE 127.8 ML/MIN; Total Protein 7.7 g/dL (6.3-8.2)
[2024-12-19] MEDS ORDERED: TYLENOL EXTRA STRENGTH 500 MG ONE (19:34)
[2024-12-19] MEDS: TYLENOL EXTRA STRENGTH 500 MG PO STA (19:35)
[2024-12-19 19:42] LABS: HCG SERUM TEST NEGATIVE (NEGATIVE)
[2024-12-19 20:11] LABS: INFLUENZA B NEGATIVE (NEGATIVE); RESPIRATORY SYNCTIAL VIRUS NEGATIVE (NEGATIVE); SARS-CoV-2 Xpert Express NEGATIVE (NEGATIVE)
[2024-12-19] MEDS ORDERED: ROCEPHIN 1 GM / 100 ML NaCl 1 GM/100 ML IVPB IV ONE (20:12)
[2024-12-19] MEDS: ROCEPHIN 1 GM / 100 ML NaCl 1 GM/100 ML IVPB IV ONE (20:13)
[2024-12-19 20:31] LABS: INFLUENZA A POSITIVE (NEGATIVE)
[2024-12-19 21:40] LABS: Calcium 8.7 mg/dL (8.4-10.2); Creatinine 1 0.67 mg/dL (0.52-1.04); EST GLOMERULAR FILTRATION RATE 125.9 ML/MIN; Potassium 3.1 mmol/L (3.5-5.1)
[2024-12-19] MEDS ORDERED: MOTRIN 600 MG ONE (21:45)
[2024-12-19] MEDS: MOTRIN 600 MG PO ONE (21:46)
[2024-12-19] MEDS ORDERED: Sodium Chloride 0.9% W/ 20 mEq KCl/LITER 1,000 ML IV ONE (21:47)
[2024-12-19] MEDS: Sodium Chloride 0.9% W/ 20 mEq KCl/LITER 1,000 ML IV SCH (21:47)
[2024-12-19] MEDS ORDERED: POTASSIUM CHLORIDE 20 mEq IN WATER 100ML 100 ML IV ONE (22:18)
[2024-12-19] MEDS: POTASSIUM CHLORIDE 20 mEq IN WATER 100ML 20 MEQ/100 ML BAG IV ONE (22:19)
[2024-12-19 23:03] VITALS: TEMP 98.6
[2024-12-20 01:21] VITALS: BP 85/47; PULSE 87; RESP 16; O2SAT 96
--- NOTE | 2024-12-20 01:28 | XRAY ---
CLINICAL HISTORY: transaminitis COMPARISON: No prior studies are available for comparison. TECHNIQUE: Non-contrast CT of the abdomen and pelvis was performed, with the following protocol: axial images, and reconstructed coronal and sagittal images. No intravenous contrast was administered. One of the following dose reduction techniques was utilized for this exam: Automated exposure control, adjustment of the mA and/or kV according to patient size, and use of iterative reconstruction. CTDI: 5.6 mGy. DLP: 295.7 mGy.cm. FINDINGS: Abdomen: Liver: Normal in size, shape, and density. No focal lesions, cysts, or masses were identified. Gallbladder and Biliary System: The gallbladder is normal in size and shape. No wall thickening, pericholecystic fluid, or gallstones were identified. Pancreas: Pancreatic head, body, and tail are visualized and appear normal in size and density. No pancreatic masses or calcifications were noted. Spleen: Normal in size, shape, and density. No splenic lesions or masses were identified. Kidneys and Adrenal Glands: Both kidneys are normal in size, shape, and position. Cortical thickness is within normal limits. No renal calculi or hydronephrosis. Adrenal glands are unremarkable. Appendix: The appendix is partially visualized and is normal in size without edwina appendiceal fat stranding and without an appendicolith. No evidence of appendiceal abscess or perforation. Pelvis: Urinary Bladder: Urinary bladder is suboptimally distended. Uterus: Normal in size and contour. No masses or abnormal thickening. Ovaries: Both ovaries appear mildly bulky. Vagina: Normal in contour and wall thickness. Cervix: No evidence of mass or abnormal thickening. Peritoneal and Retroperitoneal Structures: No free fluid or abnormal fluid collections were identified within the abdomen or pelvis. No lymphadenopathy was noted. Bowel: The visualized bowel loops are normal in caliber and appearance. No evidence of bowel obstruction or wall thickening. Bones and Soft Tissues: Pelvic bones and soft tissues are unremarkable. No fractures or abnormal masses were identified. IMPRESSION: 1. No acute abdominopelvic pathology was identified.Both ovaries appear bulky. If clinically indicated, an ultrasound pelvis is recommended for further evaluation. Electronically Signed by: Jeronimo Jordan MD. (12/20/2024 01:24:53 EST)
--- NOTE | 2024-12-20 08:38 | XRAY ---
Indication: Fever. Comparison: December 28, 2008 Portable chest again demonstrates normal heart, lungs, and bony thorax.
[2024-12-21 07:07] LABS: HBsAg Screen Negative (Negative); HCV Ab Non Reactive (Non Reactive); Hep B Core Ab, IgM Negative (Negative)
[2024-12-21 07:59] LABS: Hep A Ab, IgM Negative (Negative)
== END 2024-12-20 01:58 | disposition home or self-care (01) ==
LOC: ED 17:07
DX: J10.1 Influenza due to other identified influenza virus with other respiratory manifestations (principal); N30.00 Acute cystitis without hematuria; M79.10 Myalgia, unspecified site; R74.01 Elevation of levels of liver transaminase levels; R50.9 Fever, unspecified; R51.9 Headache, unspecified; R11.2 Nausea with vomiting, unspecified; R25.2 Cramp and spasm; Z79.899 Other long term (current) drug therapy
CPT/HCPCS: 0241U; 36415; 71045; 74176; 80048; 80053; 80074; 81001; 83605; 84703; 85025; 86308; 87040; 87086; 87651; 94760; 96374; 96375; 99285; 99284; J0696; J2405; J3480; A9270-GY